=== PATIENT | male | born 1955 | race Caucasian/White ===

== ENCOUNTER → 2018-12-09 | Outpatient (CLI) | payer SELFPAY ==
--- NOTE | 2018-12-09 14:07 | PCVCIMAG ---
APPROVED REPORT Study performed: 12/09/2018 11:34:34 Exam: Stress Echocardiogram Indication: CAD, Cor Ca+ >400,inc fatigue Patient Location: Echo lab Stress Nurse: Karine Borges RN Room #: 2 Status: routine Ht: 5 ft 10 in HR: 58 bpm BP: 138/78 mmHg Rhythm: NSR Medical History Medical History: HTN, Hyperlipidemia Cardiac Risk Factors: HTN, Hyperlipidemia Previous Cardiac Procedures: none Pretest Chest Pain Characteristics: No chest pain Exercise History: Indeterminate Procedure The patient underwent an Exercise Stress Test using the Lisa Protocol. Blood pressure, heart rate, and EKG were monitored. An Echocardiogram was performed by poultry field service technician in four stages in quad fashion. At peak stress, four selected images were obtained and placed side by side with resting images for comparison. Stress Test Details Stress Test: Exercise stress testing was performed using a Lisa protocol. HR Resting HR: 58 bpmMax Heart Rate (APMHR): 159 bpm Max HR Achieved: 144 bpmTarget HR (85% APMHR): 135 bpm % of APMHR: 90 Recovery HR: 81 bpm HR response to stress: Normal HR response to stress BP Resting BP: 138/78 mmHg Max BP: 200/102 mmHg Recovery BP: 162/88 mmHg BP response to stress: hypertensive response to stress. ECG Resting ECG: Sinus Rhythm Stress ECG: Sinus Rhythm, NSSTT changes ST Change: Non-ischemic Arrhythmia: Rare PVCs Recovery ECG: Sinus Rhythm Recovery ST Change: Non-ischemic Recovery Arrhythmia: Rare PAC,PVCs Clinical Reason for Termination: Maximal effort Stress Symptoms: fatigue,calf burning Exercise duration: 11 min 38 sec Highest Stage Achieved: Stage 4: 4.2 mph at 16% grade. Exercise capacity: 13.7 METs Overall Exercise Capacity for Age: Good Scale: Active Angina Score: None No complications. Stress ECG Conclusion The patient exercised according to the LISA protocol for 11:38 mins; achieving a work level of 13.7 METS. The resting heart rate of 58 bpm ovi to a maximum heart rate of 144 bpm. This value represent 90% of the maximal, age-predicted heart rate. The resting blood pressure of 138/78 mmHg, ovi to a maximum blood pressure of 200/102 mmHg. The exercise test was stopped due to fatigue. Pre-Stress Echo The resting Echocardiogram showed normal left ventricular contractility with an estimated Ejection Fraction of about 55-60%. Normal wall motion in all segments on baseline images. Post-Stress Echo The stress Echocardiogram showed normal left ventricular contractility with an estimated Ejection Fraction of about 65-70%. Normal augmentation of wall motion in all segments on post stress images. Clinical No clinical or ECG evidence for ischemia. Conclusion Clinical Response: Non-ischemic Exercise Capacity: Superior Stress ECG Response: Non-ischemic Stress Echo Images: Non-ischemic No clinical, EKG or echocardiographic evidence for ischemia. No echocardiographic evidence for exercise induced ischemia. Normal stress echocardiogram with maximal exercise stress. <Conclusion> No clinical, EKG or echocardiographic evidence for ischemia. No echocardiographic evidence for exercise induced ischemia. Normal stress echocardiogram with maximal exercise stress.
== END | disposition home or self-care (01) ==
LOC: PCVCIMAG 10:59
PROVIDERS: ATTEND Internal Medicine Cardiovascular Disease
DX: I25.10 Atherosclerotic heart disease of native coronary artery without angina pectoris (principal); G47.33 Obstructive sleep apnea (adult) (pediatric); I10 Essential (primary) hypertension; I47.1 Supraventricular tachycardia; E78.00 Pure hypercholesterolemia, unspecified; E78.1 Pure hyperglyceridemia; Z87.898 Personal history of other specified conditions
CPT/HCPCS: 93325; 93351